=== PATIENT | female | born 1970 | race Caucasian/White ===

== ENCOUNTER → 2016-11-06 | Outpatient (CLI) | payer OTHER | END | disposition home or self-care (01) | LOC: ORTHO 08:53 | DX: M25.561 Pain in right knee (principal); M25.551 Pain in right hip; M25.552 Pain in left hip ==

== ENCOUNTER → 2016-11-23 | Outpatient (CLI) | payer OTHER | END | disposition home or self-care (01) | LOC: ORTHO 01:48 | DX: R22.42 Localized swelling, mass and lump, left lower limb (principal) ==

== ENCOUNTER → 2017-01-21 | Day surgery (SDC) | payer OTHER ==
[2017-01-19 12:50] LABS: BILIRUBIN NEGATIVE (NEGATIVE); BLOOD 1+ (NEGATIVE); CLARITY SL CLOUDY (CLEAR); COLOR YELLOW (YELLOW); GLUCOSE NEGATIVE (NEGATIVE); KETONE NEGATIVE (NEGATIVE); LEUKO ESTERASE NEGATIVE (NEGATIVE); NITRITE NEGATIVE (NEGATIVE); PROTEIN NEGATIVE (NEGATIVE); SPECIFIC GRAVITY <= 1.005 (1.005-1.030); UROBILINOGEN 0.2 E.U./dl (0.2-1.0)
[2017-01-19 12:54] LABS: BASO # 0.1 10*3/uL (0.0-0.1); BASO % 0.6 % (0.0-1.0); EOS # 0.2 10*3/uL (0.0-0.4); HEMATOCRIT 47.2 % (37.0-47.0); LYMPH # 2.8 10*3/uL (1.3-4.4); LYMPH % 36.4 % (27.0-41.0); MEAN CELL VOLUME 86.3 fl (81.0-99.0); MEAN CORPUSCULAR HGB 29.3 pg (27.0-31.0); MEAN CORPUSCULAR HGB CONC 33.9 g/dl (33.0-37.0); MEAN PLATELET VOLUME 9.4 fl (9.6-12.3); MONO # 0.5 10*3/uL (0.1-1.0); MONO % 6.8 % (3.0-9.0); NEUT # 4.1 10*3/uL (2.3-7.9); NEUT % 52.8 % (47.0-73.0); PLATELET COUNT AUTOMATED 227 10*3/uL (130-400); RED BLOOD COUNT 5.47 10*6/uL (4.10-5.10); RED CELL DISTRI WIDTH 12.9 % (0-14.5); WHITE BLOOD COUNT 7.8 10*3/uL (4.8-10.8)
[2017-01-19 13:16] LABS: BUN 8 mg/dl (7-24); CARBON DIOXIDE 28 mmol/L (21-32); CHLORIDE 104 mmol/L (98-107); EST GLOM FILT AFRICAN AMERICAN > 60 ml/min; GLUCOSE 92 mg/dL (65-99); POTASSIUM 4.2 mmol/L (3.5-5.1); SODIUM 141 mmol/L (136-145)
[2017-01-19 14:38] LABS: BACTERIA TRACE; MUCOUS TRACE
[~2017-01-21] VITALS: Ht 160 cm; Wt 87.5 kg
[~2017-01-21] MED LIST: ATENOLOL50 M1 PO; CITALOPRAM HYDR40 MG PO; CYCLOBENZAPRINE10 MG PO; GABAPENTIN100 M2 PO; HYDROXYZINE HCL25 MG PO; LEVOTHYROXIN0.088 M1 PO; LISINOPRIL2.5 MG PO; LORAZEPAM1 MG PO; LOVASTATIN20 MG PO; NAPROXEN500 MG PO; PERCOCET 325 MG1 TA5 PO; REQUIP0.5 MG PO; VITAMIN D33000 UNIT PO; ZOFRAN4 MG PO
--- NOTE | ~2017-01-21 | O ---
[place], [place] OPERATIVE NOTE NAME: EVELINE MEJIA [facility] #: [id number] UNIT #: [id number] ROOM: DOCTOR: SHWETA APODACA DO BIRTHDATE: [birth year] DOS: 01/21/2017 PREOPERATIVE DIAGNOSES: Right knee medial meniscus tear and chondromalacia. POSTOPERATIVE DIAGNOSES: Right knee lateral meniscus tear, lateral patellar plica and chondromalacia. OPERATIVE PROCEDURE: Right knee arthroscopy with debridement of the lateral meniscus tear, excision of the lateral patellar plica and chondroplasty of the medial femoral condyle. SURGEON: Shweta Apodaca DO. FIRST ASSISTANTS: Ru. ANESTHESIA: Cameron, YARD ASSOCIATE. INDICATIONS: The patient is a 46-year-old female with a history of pain and disability about the right knee, unrelieved with conservative care. The risks and benefits of the procedure were explained to the patient preoperatively. Preoperative labs and x-rays were obtained including preoperative MRI. PROCEDURE: The right knee was marked in the holding area. The patient was brought to the operative suite. The patient was placed supine on the operative table. General anesthetic with LMA intubation was performed. The right lower extremity was prepped and draped in usual orthopedic manner. A timeout was performed. The leg was placed in a leg charles. The area about the medial and lateral parapatellar portals were injected with Marcaine 0.5% with epinephrine. Lateral portal was created using a #11 blade followed by a blunt trocar and cannula. The trocar was removed. The cannula remained. The inflow and the outflow were established through the cannula. The arthroscopy camera was placed in the cannula as well. The medial compartment was marked with a spinal needle. This was followed by #11 blade and a blunt trocar. The knee was evaluated in a systematic fashion. The medial compartment was evaluated with the arthroscopy and a 90-degree probe. The meniscus was noted to be intact with no evidence of tear. There was grade 1 chondromalacia about the medial femoral condyle. The notch was identified and evaluated. The ACL was intact to probing and an anterior drawer test. The lateral compartment was identified and evaluated. There was noted to be some fraying and minor tearing about the mid substance of the lateral meniscus and this was debrided using hand-held instrumentation followed by a full radius resector. Patellofemoral joint was identified and evaluated. There was noted to be a lateral patella plica and this was excised using the full radius resector. The [place], [place] OPERATIVE NOTE NAME: EVELINE MEJIA UNIT #: [id number] ROOM: DOCTOR: SHWETA APODACA DO BIRTHDATE: [birth year] [employer] arthroscopy wand was used to release further distal plica. The articular surface had minor degenerative changes. The instrumentation was switched using the arthroscopy camera medially and instrumentation laterally. All compartments were again identified and evaluated. Further debridement was performed about the medial femoral condyle. With no further repairable or debridable pathology was present, the knee was copiously irrigated with remainder of lactated ringers with epinephrine. The instrumentation was removed. The portals were closed with 3-0 nylon in a simple fashion. Xeroform, 4 x 4s, cast padding, ABDs, and an Casa bandage were applied. The anesthetic was reversed. The patient was extubated and taken to recovery room in satisfactory condition. SPONGE AND NEEDLE COUNT: Correct. ESTIMATED BLOOD LOSS: 5 mL. SPECIMENS: None. DRAINS: None. PACKING: None. COMPLICATIONS: None. FINDINGS: 1. Lateral meniscus tear. 2. Lateral patellar plica. 3. Grade 1 chondromalacia of the medial femoral condyle. SHWETA APODACA DO CM:OPRECORD:OPERATIVE NOTE [id number] SHWETA APODACA DO 01/21/17 1756 interface
[2017-01-21 08:00] VITALS: BP 139/75
[2017-01-21 09:33] VITALS: BP 128/80
[2017-01-21 09:43] VITALS: BP 113/68
[2017-01-21 10:00] VITALS: BP 109/69
[2017-01-21 10:15] VITALS: BP 107/65
[2017-01-21 10:45] VITALS: BP 113/70
== END | disposition home or self-care (01) ==
LOC: SDC 01-14 10:15
PROVIDERS: Orthopaedic Surgery
DX: S83.281A Other tear of lateral meniscus, current injury, right knee, initial encounter (principal); M22.41 Chondromalacia patellae, right knee; M67.51 Plica syndrome, right knee; I10 Essential (primary) hypertension; F32.9 Major depressive disorder, single episode, unspecified; F41.9 Anxiety disorder, unspecified; E78.5 Hyperlipidemia, unspecified; M41.9 Scoliosis, unspecified; Z98.890 Other specified postprocedural states; Z79.899 Other long term (current) drug therapy; Z83.3 Family history of diabetes mellitus; X58.XXXA Exposure to other specified factors, initial encounter; Y93.89 Activity, other specified; Y92.89 Other specified places as the place of occurrence of the external cause; Y99.8 Other external cause status

== ENCOUNTER → 2017-09-20 | Outpatient (CLI) | payer OTHER | END | disposition home or self-care (01) | LOC: ORTHO 01:35 → US 01:35 → ORTHO 19:32 | DX: M17.11 Unilateral primary osteoarthritis, right knee (principal); L53.9 Erythematous condition, unspecified; Z98.890 Other specified postprocedural states ==